=== PATIENT | male | born 1950 | race Caucasian/White ===

== ENCOUNTER 2019-02-22 03:35 | Inpatient (IN) | payer OTHER, MEDICAID ==
[~2019-02-22] VITALS: Ht 167.6 cm; Wt 80.7 kg
[~2019-02-22 03:35] MED LIST: AMLO10TA4; ASPI-785; GABA300C; HYDR25TA; LOSA100T32; METF-517; NITR0.4T; PRAV80TA21; SERT50TA12; TOPXL5
[2019-02-22] MEDS ORDERED: ONDANSETRON HCL 4MG/2ML INJ IV STA (04:21)
[2019-02-22] MEDS ORDERED: MORPHINE SULFATE 4 MG/ML CPJ (NOT FOR IM USE) IV STA (04:21)
[2019-02-22] MEDS ORDERED: DEXAMETHASONE 10 MG/ML VIAL IV ONE (04:30)
[2019-02-22] MEDS ORDERED: LEVETIRACETAM 500MG PREMIX 100 ML IV ONE (04:30)
[2019-02-22 05:36] LABS: BASOPHILS % 1.7 % (0.0-2.0); EOSINOPHILS % 13.6 % (0.0-5.0); HEMATOCRIT. 34.2 % (42.0-52.0); HEMOGLOBIN. 11.5 g/dL (14.0-18.0); LYMPHOCYTES % 39.5 % (20.0-50.0); MEAN PLATELET VOLUME 8.1 fl (7.4-10.4); MONOCYTES % 14.8 % (2.0-8.0); NEUTROPHILS % 30.4 % (40.0-76.0); PLATELET 294 x1000/uL (130-400); RED BLOOD CELL COUNT 3.98 mill/uL (4.7-6.1)
[2019-02-22 05:40] LABS: CHLORIDE 103 mEq/L (98-107)
[2019-02-22 05:50] LABS: PROTHROMBIN TIME 10.2 sec (9.6-11.0)
[2019-02-22] MEDS ORDERED: IPRATROPIUM/ALBUTEROL 0.5-3(2.5)MG/3ML NEB HHN PRN (10:15)
[2019-02-22] MEDS ORDERED: ONDANSETRON HCL 4MG/2ML INJ IV PRN (10:15)
[2019-02-22] MEDS ORDERED: MAGNESIUM/ALUMINUM HYDROXIDE/SIMETHICONE 30ML UDC PO PRN (10:15)
[2019-02-22] MEDS ORDERED: DOCUSATE SODIUM 100MG CAPSULE PO PRN (10:15)
[2019-02-22] MEDS ORDERED: GUAIFENESIN 200MG/10ML SUGAR FREE UDC PO PRN (10:15)
[2019-02-22] MEDS ORDERED: LORAZEPAM 0.5MG TABLET PO PRN (10:15)
[2019-02-22] MEDS: AMLODIPINE 10MG TABLET PO SCH (10:15)
[2019-02-22] MEDS ORDERED: NITROGLYCERIN 0.4MG TABLET SL SL PRN (10:15)
[2019-02-22] MEDS ORDERED: DEXTROSE 50% WATER 50ML SYRINGE IV PRN (10:30)
[2019-02-22] MEDS ORDERED: POTASSIUM CHLORIDE 20MEQ TABLET SR PO SCH (11:15)
[2019-02-22] MEDS: ENOXAPARIN 40MG/0.4ML SYR SUBCUT SCH (12:02)
[2019-02-22] MEDS ORDERED: BLOOD SUGAR DIAGNOSTIC STRIP TEST SCH (13:00)
[2019-02-22] MEDS ORDERED: INSULIN LISPRO 100 UNITS/ML SUBCUT SCH (13:20)
[2019-02-22 14:20] LABS: CREATINE KINASE MB FRACTION 1.4 ng/mL (0.5-3.6)
[2019-02-22] MEDS ORDERED: CLOPIDOGREL 75MG TABLET PO SCH (16:45)
[2019-02-22] MEDS: BLOOD SUGAR DIAGNOSTIC STRIP TEST SCH ×2 (17:45→21:00)
[2019-02-22 20:00] VITALS: BP 110/48
[2019-02-22] MEDS ORDERED: ACET-2853 PO (20:53)
[2019-02-22] MEDS ORDERED: ASCO500C15 MT (20:53)
[2019-02-22] MEDS ORDERED: INSU100I28 SQ (20:58)
[2019-02-22] MEDS ORDERED: GABA-531 PO (20:58)
[2019-02-22] MEDS ORDERED: HYDR25TA MT (20:58)
[2019-02-22] MEDS ORDERED: HYDR-4001 PO (20:58)
[2019-02-22] MEDS ORDERED: DOCU-150 MT (20:58)
[2019-02-22] MEDS: INSULIN LISPRO 100 UNITS/ML SUBCUT SCH (21:00)
[2019-02-22] MEDS: FAMOTIDINE 20MG TABLET PO SCH (21:00)
[2019-02-22] MEDS: METOPROLOL TARTRATE 25MG TABLET PO SCH (21:00)
[2019-02-22] MEDS ORDERED: METO75TA PO (21:03)
[2019-02-22] MEDS ORDERED: MINO2.5T2 PO (21:05)
[2019-02-22] MEDS ORDERED: ONDA4TAB5 PO (21:05)
[2019-02-22] MEDS ORDERED: SENN-170 PO (21:13)
[2019-02-22] MEDS ORDERED: NALO4SPR NS (21:13)
[2019-02-22] MEDS ORDERED: PEG15DRO5 EACHEYE (21:13)
[2019-02-22] MEDS ORDERED: POLY15DR31 OP (21:13)
[2019-02-22] MEDS ORDERED: PRAV80TA21 PO (21:13)
[2019-02-22] MEDS ORDERED: RANI150C12 PO (21:13)
[2019-02-23 00:13] LABS: CREATINE KINASE 98 IU/L (39-308)
[2019-02-23 00:14] LABS: CREATINE KINASE MB FRACTION 1.3 ng/mL (0.5-3.6)
[2019-02-23] MEDS: BLOOD SUGAR DIAGNOSTIC STRIP TEST SCH ×4 (06:39→20:48)
[2019-02-23] MEDS: INSULIN LISPRO 100 UNITS/ML SUBCUT SCH ×4 (06:39→20:48)
[2019-02-23 08:00] VITALS: BP 133/69
[2019-02-23] MEDS: METOPROLOL TARTRATE 25MG TABLET PO SCH ×2 (09:08→20:47)
[2019-02-23] MEDS: ENOXAPARIN 40MG/0.4ML SYR SUBCUT SCH (09:08)
[2019-02-23] MEDS: AMLODIPINE 10MG TABLET PO SCH (09:09)
[2019-02-23] MEDS: CLOPIDOGREL 75MG TABLET PO SCH (09:09)
[2019-02-23] MEDS: CLONIDINE 0.1MG TABLET PO PRN (11:56)
[2019-02-23 12:00] VITALS: BP_SYST 152; BP_SYST 210; BP_DIAS 77; BP_DIAS 78
[2019-02-23 15:45] VITALS: BP 146/69
[2019-02-23 20:00] VITALS: BP 159/71
[2019-02-23] MEDS: FAMOTIDINE 20MG TABLET PO SCH (21:03)
[2019-02-24] VITALS: BP 112/73
[2019-02-24 04:00] VITALS: BP 162/76
[2019-02-24] MEDS: CLONIDINE 0.1MG TABLET PO PRN (05:18)
[2019-02-24] MEDS: BLOOD SUGAR DIAGNOSTIC STRIP TEST SCH ×4 (07:01→21:00)
[2019-02-24] MEDS: INSULIN LISPRO 100 UNITS/ML SUBCUT SCH ×4 (07:01→21:00)
[2019-02-24 08:00] VITALS: BP 149/69
[2019-02-24] MEDS: METOPROLOL TARTRATE 25MG TABLET PO SCH ×2 (08:25→21:14)
[2019-02-24] MEDS: CLOPIDOGREL 75MG TABLET PO SCH (08:26)
[2019-02-24] MEDS: AMLODIPINE 10MG TABLET PO SCH (08:26)
[2019-02-24] MEDS: ENOXAPARIN 40MG/0.4ML SYR SUBCUT SCH (08:26)
[2019-02-24] MEDS: ACETAMINOPHEN 325MG TABLET PO PRN ×2 (11:17→16:46)
[2019-02-24 12:00] VITALS: BP 141/70
[2019-02-24] MEDS: LACTULOSE 20G/30ML UDC PO SCH ×2 (14:12→21:00)
[2019-02-24 15:39] LABS: *AMPHETAMINES SCREEN URINE NEGATIVE (NEGATIVE); *BARBITURATES SCREEN URINE NEGATIVE (NEGATIVE)
[2019-02-24 15:40] LABS: *BENZODIAZEPINES SCREEN URINE NEGATIVE (NEGATIVE); *COCAINE SCREEN URINE NEGATIVE (NEGATIVE); CANNABINOID URINE SCREEN PRESUMTIVE POSITIVE (NEGATIVE); METHADONE URINE SCREEN NEGATIVE (NEGATIVE); OPIATES URINE SCREEN PRESUMTIVE POSITIVE (NEGATIVE); PHENCYCLIDINE URINE SCREEN NEGATIVE (NEGATIVE)
[2019-02-24 16:00] VITALS: BP 135/68
[2019-02-24] MEDS: DOCUSATE SODIUM 100MG CAPSULE PO SCH (16:53)
[2019-02-24 20:00] VITALS: BP 163/57
[2019-02-24] MEDS: FAMOTIDINE 20MG TABLET PO SCH (21:15)
[2019-02-24] MEDS: KETOROLAC 15MG/ML VIAL IV PRN (23:47)
[2019-02-25] VITALS: BP 136/69
[2019-02-25 00:54] LABS: T4 FREE 1.1 ng/dL (0.76-1.46)
[2019-02-25 01:43] LABS: FOLIC ACID (FOLATE) SERUM >20 ng/mL ng/mL (>5.38)
[2019-02-25 01:55] LABS: VITAMIN B12 SERUM >2000 pg/mL pg/mL (211-911)
[2019-02-25] MEDS: ZOLPIDEM TARTRATE 5MG TABLET PO PRN ×2 (01:55→23:15)
[2019-02-25 04:00] VITALS: BP 136/65
[2019-02-25] MEDS: INSULIN LISPRO 100 UNITS/ML SUBCUT SCH ×4 (06:35→20:52)
[2019-02-25] MEDS: BLOOD SUGAR DIAGNOSTIC STRIP TEST SCH ×4 (06:35→20:52)
[2019-02-25 08:00] VITALS: BP 151/58
[2019-02-25] MEDS: DOCUSATE SODIUM 100MG CAPSULE PO SCH ×2 (09:00→17:00)
[2019-02-25] MEDS: METOPROLOL TARTRATE 25MG TABLET PO SCH ×2 (09:00→20:52)
[2019-02-25] MEDS: LACTULOSE 20G/30ML UDC PO SCH ×2 (09:00→13:00)
[2019-02-25] MEDS: CLOPIDOGREL 75MG TABLET PO SCH (10:00)
[2019-02-25] MEDS: ENOXAPARIN 40MG/0.4ML SYR SUBCUT SCH (10:01)
[2019-02-25] MEDS: AMLODIPINE 10MG TABLET PO SCH (10:01)
[2019-02-25 12:00] VITALS: BP 142/72
[2019-02-25] MEDS: KETOROLAC 15MG/ML VIAL IV PRN ×2 (14:32→21:16)
[2019-02-25 16:00] VITALS: BP 125/91
[2019-02-25 20:00] VITALS: BP 155/69
[2019-02-25] MEDS: FAMOTIDINE 20MG TABLET PO SCH (20:52)
[2019-02-26] VITALS: BP 149/89
[2019-02-26 04:00] VITALS: BP 148/73
[2019-02-26] MEDS: INSULIN LISPRO 100 UNITS/ML SUBCUT SCH ×4 (06:09→20:17)
[2019-02-26] MEDS: BLOOD SUGAR DIAGNOSTIC STRIP TEST SCH ×4 (06:09→20:08)
[2019-02-26 08:00] VITALS: BP 162/78
[2019-02-26] MEDS: DOCUSATE SODIUM 100MG CAPSULE PO SCH ×2 (10:08→16:10)
[2019-02-26] MEDS: CLOPIDOGREL 75MG TABLET PO SCH (10:08)
[2019-02-26] MEDS: ENOXAPARIN 40MG/0.4ML SYR SUBCUT SCH (10:08)
[2019-02-26] MEDS: METOPROLOL TARTRATE 25MG TABLET PO SCH ×2 (10:09→20:12)
[2019-02-26] MEDS: AMLODIPINE 10MG TABLET PO SCH (10:09)
[2019-02-26] MEDS: ACETAMINOPHEN 325MG TABLET PO PRN (10:37)
[2019-02-26 12:00] VITALS: BP 129/84
[2019-02-26 16:00] VITALS: BP 110/74
[2019-02-26] MEDS: KETOROLAC 15MG/ML VIAL IV PRN (16:14)
[2019-02-26 20:00] VITALS: BP 149/70
[2019-02-26] MEDS: FAMOTIDINE 20MG TABLET PO SCH (20:12)
[2019-02-26] MEDS: ZOLPIDEM TARTRATE 5MG TABLET PO PRN (20:12)
[2019-02-27] VITALS: BP 145/77
[2019-02-27 04:00] VITALS: BP 165/80
[2019-02-27] MEDS: BLOOD SUGAR DIAGNOSTIC STRIP TEST SCH ×4 (06:01→20:36)
[2019-02-27] MEDS: INSULIN LISPRO 100 UNITS/ML SUBCUT SCH ×4 (06:04→20:53)
[2019-02-27 07:47] VITALS: BP 177/81
[2019-02-27] MEDS: DOCUSATE SODIUM 100MG CAPSULE PO SCH ×2 (07:48→16:40)
[2019-02-27] MEDS: METOPROLOL TARTRATE 25MG TABLET PO SCH ×2 (07:48→20:48)
[2019-02-27] MEDS: AMLODIPINE 10MG TABLET PO SCH (07:48)
[2019-02-27] MEDS: CLOPIDOGREL 75MG TABLET PO SCH (07:48)
[2019-02-27] MEDS: ENOXAPARIN 40MG/0.4ML SYR SUBCUT SCH (07:48)
[2019-02-27] MEDS: ACETAMINOPHEN 325MG TABLET PO PRN ×3 (10:20→17:50)
[2019-02-27] MEDS: KETOROLAC 15MG/ML VIAL IV PRN (11:16)
[2019-02-27] MEDS: CLONIDINE 0.1MG TABLET PO PRN (13:11)
[2019-02-27] MEDS: POLYETHYLENE GLYCOL 3350 (17GM) 1 DOSE PACK PO SCH (14:33)
[2019-02-27] MEDS: LACTULOSE 20G/30ML UDC PO SCH ×2 (16:39→20:36)
[2019-02-27 20:00] VITALS: BP 156/72
[2019-02-27] MEDS: FAMOTIDINE 20MG TABLET PO SCH (20:48)
[2019-02-27] MEDS: ZOLPIDEM TARTRATE 5MG TABLET PO PRN (20:48)
[2019-02-28] VITALS: BP 152/82
[2019-02-28 04:00] VITALS: BP 142/85
[2019-02-28] MEDS: INSULIN LISPRO 100 UNITS/ML SUBCUT SCH ×4 (05:35→21:00)
[2019-02-28] MEDS: BLOOD SUGAR DIAGNOSTIC STRIP TEST SCH ×4 (05:35→21:00)
[2019-02-28 06:54] LABS: CHLORIDE 104 mEq/L (98-107)
[2019-02-28 06:58] LABS: BASOPHILS % 2.2 % (0.0-2.0); EOSINOPHILS % 14.3 % (0.0-5.0); HEMATOCRIT. 33.9 % (42.0-52.0); HEMOGLOBIN. 11.4 g/dL (14.0-18.0); LYMPHOCYTES % 36.9 % (20.0-50.0); MEAN CORPUSCULAR HEMOGLOBIN 29.1 pg (28.0-32.0); MEAN CORPUSCULAR VOLUME 86.5 fL (80.0-94.0); MEAN PLATELET VOLUME 8.6 fl (7.4-10.4); MONOCYTES % 14.4 % (2.0-8.0); NEUTROPHILS % 32.2 % (40.0-76.0); PLATELET 322 x1000/uL (130-400); RED BLOOD CELL COUNT 3.92 mill/uL (4.7-6.1); RED CELL DISTRIBUTION WIDTH 15.2 % (11.6-14.6)
[2019-02-28 07:02] LABS: PHOSPHORUS 3.4 mg/dL (2.5-4.9)
[2019-02-28 08:00] VITALS: BP 145/71
[2019-02-28] MEDS: POLYETHYLENE GLYCOL 3350 (17GM) 1 DOSE PACK PO SCH (08:28)
[2019-02-28] MEDS: LACTULOSE 20G/30ML UDC PO SCH (08:28)
[2019-02-28] MEDS: DOCUSATE SODIUM 100MG CAPSULE PO SCH ×2 (08:29→16:21)
[2019-02-28] MEDS: METOPROLOL TARTRATE 25MG TABLET PO SCH ×2 (08:29→21:01)
[2019-02-28] MEDS: CLOPIDOGREL 75MG TABLET PO SCH (08:29)
[2019-02-28] MEDS: AMLODIPINE 10MG TABLET PO SCH (08:29)
[2019-02-28] MEDS: ENOXAPARIN 40MG/0.4ML SYR SUBCUT SCH (08:34)
[2019-02-28] MEDS ORDERED: POTASSIUM CHLORIDE 20MEQ TABLET SR PO NR (08:45)
[2019-02-28 12:00] VITALS: BP 133/69
[2019-02-28] MEDS: BUTALBITAL/ACETAMINOPHEN/CAFFEINE 50/325/40MG TABLET PO PRN (15:22)
[2019-02-28 16:00] VITALS: BP 133/61
[2019-02-28 20:00] VITALS: BP 143/77
[2019-02-28] MEDS: FAMOTIDINE 20MG TABLET PO SCH (21:01)
[2019-02-28] MEDS: KETOROLAC 15MG/ML VIAL IV PRN (21:02)
[2019-03-01] VITALS: BP 147/69
[2019-03-01 04:20] VITALS: BP 142/110
[2019-03-01] MEDS: INSULIN LISPRO 100 UNITS/ML SUBCUT SCH ×4 (06:33→20:55)
[2019-03-01] MEDS: BLOOD SUGAR DIAGNOSTIC STRIP TEST SCH ×4 (06:33→20:55)
[2019-03-01 08:00] VITALS: BP 190/110
[2019-03-01] MEDS: ACETAMINOPHEN 325MG TABLET PO PRN (08:46)
[2019-03-01] MEDS: METOPROLOL TARTRATE 25MG TABLET PO SCH ×2 (08:47→20:43)
[2019-03-01] MEDS: POLYETHYLENE GLYCOL 3350 (17GM) 1 DOSE PACK PO SCH (08:47)
[2019-03-01] MEDS: ENOXAPARIN 30MG/0.3ML SYR SUBCUT SCH (08:47)
[2019-03-01] MEDS: CLOPIDOGREL 75MG TABLET PO SCH (08:47)
[2019-03-01] MEDS: DOCUSATE SODIUM 100MG CAPSULE PO SCH ×2 (08:47→17:00)
[2019-03-01] MEDS: AMLODIPINE 10MG TABLET PO SCH (08:47)
[2019-03-01 12:00] VITALS: BP 140/80
[2019-03-01 16:00] VITALS: BP 160/79
[2019-03-01 20:00] VITALS: BP 148/69
[2019-03-01] MEDS: FAMOTIDINE 20MG TABLET PO SCH (20:42)
[2019-03-01] MEDS: BUTALBITAL/ACETAMINOPHEN/CAFFEINE 50/325/40MG TABLET PO PRN (21:56)
[2019-03-02] VITALS: BP 156/69
[2019-03-02] MEDS: BUTALBITAL/ACETAMINOPHEN/CAFFEINE 50/325/40MG TABLET PO PRN ×2 (05:20→10:51)
[2019-03-02] MEDS: BLOOD SUGAR DIAGNOSTIC STRIP TEST SCH ×2 (06:08→12:26)
[2019-03-02] MEDS: INSULIN LISPRO 100 UNITS/ML SUBCUT SCH ×2 (06:08→12:40)
[2019-03-02 08:00] VITALS: BP 173/83
[2019-03-02] MEDS: AMLODIPINE 10MG TABLET PO SCH (10:37)
[2019-03-02] MEDS: DOCUSATE SODIUM 100MG CAPSULE PO SCH ×2 (10:38→17:00)
[2019-03-02] MEDS: METOPROLOL TARTRATE 25MG TABLET PO SCH (10:38)
[2019-03-02] MEDS: POLYETHYLENE GLYCOL 3350 (17GM) 1 DOSE PACK PO SCH (10:38)
[2019-03-02] MEDS: CLOPIDOGREL 75MG TABLET PO SCH (10:38)
[2019-03-02] MEDS: ENOXAPARIN 30MG/0.3ML SYR SUBCUT SCH (10:39)
[2019-03-02 20:19] VITALS: BP 143/57
[2019-03-02] MEDS: ACETAMINOPHEN 325MG TABLET PO PRN (20:46)
[2019-03-04 19:13] LABS: 25-HYDROXY VITAMIN D3 40 ng/mL (.)
== END 2019-03-02 21:00 | disposition home or self-care (01) | DRG 45 ==
LOC: ER 03:35 → 8WST 05:48 → EDBEDREQ 05:56 → EDBEDREQTM 05:56 → EDBEDREQ 06:26 → ENRESERV 17:45 → 8WST 02-27 01:06
PROVIDERS: ADMIT Internal Medicine; ATTEND Internal Medicine
DX: I63.9 Cerebral infarction, unspecified (principal); N17.0 Acute kidney failure with tubular necrosis; C85.90 Non-Hodgkin lymphoma, unspecified, unspecified site; C79.31 Secondary malignant neoplasm of brain; R13.10 Dysphagia, unspecified; G81.94 Hemiplegia, unspecified affecting left nondominant side; R41.4 Neurologic neglect syndrome; H53.462 Homonymous bilateral field defects, left side; D63.8 Anemia in other chronic diseases classified elsewhere; E66.9 Obesity, unspecified; E87.6 Hypokalemia; F32.9 Major depressive disorder, single episode, unspecified; I10 Essential (primary) hypertension; E78.5 Hyperlipidemia, unspecified; H54.7 Unspecified visual loss; E11.9 Type 2 diabetes mellitus without complications; E78.00 Pure hypercholesterolemia, unspecified; R47.1 Dysarthria and anarthria; Z79.899 Other long term (current) drug therapy; Z79.4 Long term (current) use of insulin; Z82.49 Family history of ischemic heart disease and other diseases of the circulatory system; Z68.28 Body mass index [BMI] 28.0-28.9, adult
CPT/HCPCS: 36415; 70544; 70551; 71045; 80061; 80305; 82306; 82550; 82553; 82607; 82746; 82962; 83036; 83735; 84100; 84439; 84443; 84481; 84484; 92610; 93005; 93306; 93880; 93970; 97116; 97162; 97166; 97530; 97535; 99285; C1893; J1100; J1650; J1815; J1885; J1953; J2270; J2405